=== PATIENT | male | born 1975 | race Caucasian/White ===

== ENCOUNTER 2017-04-17 19:29 | Emergency (ER) | payer OTHER ==
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
[2017-04-17] MEDS ORDERED: IBUPROFEN 200 MG TAB PO ONE (19:57)
[2017-04-17] MEDS ORDERED: IBUPROFEN 600 MG TAB PO ONE (19:57)
[2017-04-17] MEDS ORDERED: HYDROCOD/APAP 5/325 PREPACK#6 BTL TAKEHOME ONE (20:35)
[2017-04-17 20:49] VITALS: BP 136/68; PULSE 65; RESP 18; TEMP 98.2; O2SAT 96
== END 2017-04-17 20:54 | disposition home or self-care (01) ==
DX: S43.102A Unspecified dislocation of left acromioclavicular joint, initial encounter (principal); S20.212A Contusion of left front wall of thorax, initial encounter; S40.212A Abrasion of left shoulder, initial encounter; V18.2XXA Unspecified pedal cyclist injured in noncollision transport accident in nontraffic accident, initial encounter